=== PATIENT | male | born 1980 | race Caucasian/White ===

== ENCOUNTER 2018-08-21 11:31 | Emergency (ER) | payer MEDICAID ==
[2018-08-21 11:41] VITALS: BP 122/81
--- NOTE | 2018-08-21 12:23 | NUR ---
pt is 38 yo male c/o tooth problem x 1month, has seen dentist at [facility], needs root canal, waiting for follow up appt, "I had abscess pop today and need antibiotics or something", pt is waiting quietly on gurney to be evaluated by provider
[2018-08-21] MEDS ORDERED: CLIN150C2 PO (13:26)
== END 2018-08-21 13:55 | disposition home or self-care (01) ==
LOC: ER 11:31
DX: K04.7 Periapical abscess without sinus (principal); Z79.2 Long term (current) use of antibiotics
CPT/HCPCS: 99283

== ENCOUNTER 2023-11-03 19:41 | Emergency (ER) | payer SELFPAY ==
[~2023-11-03] VITALS: Ht 180.3 cm; Wt 99.1 kg
[2023-11-03 19:45] VITALS: TEMP 98.7
[2023-11-03] MEDS ORDERED: PSEU120T56 PO (20:02)
[2023-11-03] MEDS ORDERED: PROM118S5 PO (20:02)
[2023-11-03] MEDS ORDERED: IBUP-1984 PO (20:02)
[2023-11-03 20:46] VITALS: BP 145/82; PULSE 79; RESP 14; O2SAT 98
== END 2023-11-03 20:48 | disposition home or self-care (01) ==
LOC: ER 19:41
DX: J32.8 Other chronic sinusitis (principal)
CPT/HCPCS: 99283

== ENCOUNTER 2023-12-28 06:45 | Emergency (ER) | payer MEDICAID ==
[~2023-12-28] VITALS: Ht 180.3 cm; Wt 105.0 kg
[~2023-12-28 06:45] MED LIST: PSEU120T56 PO
[2023-12-28 08:32] LABS: BILIRUBIN,URINE NEGATIVE (Neg); CLARITY,URINE CLEAR (Clear); COLOR,URINE STRAW (Yellow); GLUCOSE, URINE NEGATIVE (Neg); KETONES,URINE NEGATIVE (Neg); LEUKOCYTE ESTERASE ,URINE NEGATIVE (Neg); NITRITES, URINE NEGATIVE (Neg); OCCULT BLOOD,URINE NEGATIVE (Neg); PROTEIN,URINE NEGATIVE (Neg); UROBILINOGEN,URINE 0.2 E.U/dL (0.2-1.0)
[2023-12-28 08:44] LABS: UA COLLECTION TYPE CLN CATCH MIDSTREAM
[2023-12-28] MEDS: mag hydrox/Alum hydrox/simeth 30ml oral suspension PO ONE (09:54)
[2023-12-28] MEDS: LIDOcaine 2% Viscous 15ml cup MM PRN (09:55)
[2023-12-28] MEDS ORDERED: OMEP40CA21 PO (09:56)
[2023-12-28 10:03] VITALS: BP 121/86; PULSE 69; RESP 16; TEMP 98.6; O2SAT 97
== END 2023-12-28 10:04 | disposition home or self-care (01) ==
LOC: ER 06:45
DX: K29.00 Acute gastritis without bleeding (principal); Z79.899 Other long term (current) drug therapy
CPT/HCPCS: 81003; 99283